=== PATIENT | female | born 1960 | race Caucasian/White ===

== ENCOUNTER → 2016-12-22 | Day surgery (SDC) | payer OTHER ==
[~2016-12-22] VITALS: Ht 162.6 cm; Wt 114.0 kg
[2016-12-22] VITALS (10 sets, daily range): BP systolic 108–143; BP diastolic 66–81; PULSE 81–89; RESP 10–17; O2SAT 93–99
[~2016-12-22] MED LIST: ALPR1TAB2 PO; Atropine 0.4 mg/mL Inj IVPUSH PRN; Bupivacaine Liposome 1.3% 20 mL Inj ONE; Bupivacaine-MPF 0.5% 30 mL Inj INFILTRATE ONE; Dexamethasone 4 mg/mL Inj ONE; EPHEDrine Sulfate 50 mg/mL Inj IVPUSH PRN; HYDR-656 PO; HYDROcodone-APAP 5-325 mg Tablet PO PRN; HYDROmorphone 1 mg/mL Inj IVPUSH PRN; Ketamine 10 mg/mL 20 mL Inj ONE; LEVO137C2 PO; LIOT25TA4 PO; Labetalol 5 mg/mL 20 mL Inj IV PRN; Lactated Ringer's 1,000 ML IV ONE; Lactated Ringer's 1,000 ML IV SCH; Lactated Ringer's 500 ML IV PRN; MELO-253 PO; MONT10TA23 PO; MetoCLOpramide 5 mg/mL 2 mL Inj IVPUSH PRN; Ondansetron 2 mg/mL 2 mL Inj IVPUSH PRN; Ondansetron 2 mg/mL 2 mL Inj ONE; Phenylephrine 10,000 mCg/mL Inj IVPUSH PRN; Propofol 10,000 mCg/mL 20 mL Inj ONE; VENL37.587 PO; fentaNYL-PF 50 mCg/mL 2 mL Inj IVPUSH PRN; fentaNYL-PF 50 mCg/mL 2 mL Inj ONE
--- NOTE | 2016-12-22 10:03 | PCM.HPANE ---
Patient Data Date of Service: Dec 22, 2016 Surgeon Admitting Provider: Attending Provider:Harriet Johnson MD Primary Care Physician:Mitch Lazcano MD Other Provider:Radha Zamora Anesthesia Reason for Visit External Hemorrhoids Ht/WT & BMI Height (Feet): 5 Height (Inches): 4.00 Weight (Kilograms): 114 Body Mass Index 42.00 Allergies Coded Allergies: No Known Allergies (Unverified Allergy, Unknown, 12/14/16) Past Anesthesia History Anesthesia History: Denies:: Anesthesia Reactions, Fam Anesthesia Reaction, Fam Malignant Hypertherm, Malignant Hyperthermia Diabetes History Hx Diabetes?: No MRSA MRSA: No Medications Home Meds Incl Beta Casey: No Reported Medications Alprazolam (Xanax)1 Mg Tablet1 Mg PO TID PRN For Anxiety Ref 0 12/14/16 Venlafaxine ER 37.5 Mg Tab.er.2437.5 Mg PO DAILY Ref 0 12/14/16 Levothyroxine (Tirosint)137 Mcg [id number] Mcg PO DAILY 12/14/16 Montelukast 10 Mg Sozntl38 Mg PO HS Ref 0 12/14/16 Meloxicam 15 Mg Exhzzn07 Mg PO DAILY 30 Days Ref 0 12/14/16 hydrOXYzine Hcl (HydrOXYzine Hcl)25 Mg Bxhwmi69 Mg PO TID PRN For Itching Ref 0 12/14/16 Liothyronine Sodium (Cytomel)25 Mcg Vjimlc49 Mcg PO DAILY 12/14/16 History History of ENT Problems?: No HEENT History: Denies:: Cataracts Dysphagia Hearing Problem Sinus Problem Denture Type: None Teeth Condition: Within Normal Limits Hx of Heart Problems?: No Cardiovascular History: Denies:: Cardiac Surgery Chest Pain Congestive Heart Failure Hypertension Pacemaker Hx of Respiratory Problem?: No Respiratory History: Denies:: Asthma COPD Oxygen Administration Tuberculosis Use of C-PAP Machine Hx Neurologic Problems?: No Neurological History: Denies:: Dizziness Headaches Multiple Sclerosis Parkinson's Disease Seizures Other History/Comments 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 (hx of breast reduction) Denies:: Currently (hysterectomy) Skin History: Denies:: History Skin Disorders? Hx Musculoskeletal Problems?: No Musculoskeletal History: Denies:: Joint Replacement Hx of Psycho/Social Problems?: No Psycho Social History: Denies:: Anxiety Bipolar Disorder Hx Depression Hx Surgeries?: Yes (BREAST REDUCTION, GASTRIC BYPASS, ANNEMARIE, BENIGN CYST SHOULDER, ) Hx Any Other Health Problems?: Yes Other History: Positive for:: Hospitalization Thyroid Disease (hx of thyroid ablation ) Denies:: Cancer History Blood Transfusions: Denies:: Blood Transfusions Hx Diabetes: No Hx Alcohol Use: YesAlcoholic Drinks Per Day: 6x yearlyHx Substance Use: No Have You Smoked inLast 12 mo: No Stop/Bang P-Blood Pressure: treated: No B- Body Mass Index > 35 kg/m2: Yes A- Age over 50: Yes N- Neck Large Circumference: No G- Gender Male: No Risk Assessment Category Category 1A: Patient has history of documented sleep apnea, and HAS NOT received any narcotic, sedative or anesthesia administration during this stay. Category 1B: Patient has history of documented sleep apnea, and HAS received any narcotic , sedative or anesthesia administration during this stay Category 2: Patient has SUSPECTED Obstructive Sleep Apnea, and HAS received any narcotic , sedative or anesthesia administration during this stay. Category 3: Patient has SUSPECTED Obstructive Sleep Apnea and HAS NOT received narcotic, sedative or anesthesia administration during this stay. Category 4: Outpatient in Procedural Areas with known sleep apnea or who screen positive for High Risk via the STOP/BANG questionnaire. Exam Exam Vital Signs Vital Signs Date Time Temp Pulse Resp B/P Pulse Ox O2 Delivery O2 Flow Rate FiO2 12/22/16 08:04 35.9 84 17 140/77 97 Room Air General Appearance: Alert, Oriented X3, Cooperative HEENT/AIRWAY: MP 2 Lungs: Clear to Auscultation Heart: Regular Rate/Rhythm, Normal S1, Normal S2, No Murmurs/Rubs/Gallops Meds/Labs/Diagnostics Admission Meds Current Medications Lactated Ringer's (Lr) 1,000 ml @ ud STK-MED ONCE IV Last administered on 12/22t 08:03; Start 12/22/16 at 08:03; Stop 12/22/16 at 08:04; Status DC Plan Impression Patient chart reviewed, patient interviewed and anesthestic plan with risks, benefits, and alternatives discussed, and informed consent obtained. ASA Physical Status: ASA3 Severe Disease Anesthetic Plan: GA Bene/Risks/Altern/Consents: Yes HP Complete Prior to Induction: Yes Tyler Veloz MD Dec 22, 2016 08:41
--- NOTE | 2016-12-22 11:02 | PCM.DISURG ---
Surgical Discharge Instruction Date of Service Dec 22, 2016 Dates of Hospitalization Date of Hospital Admission Providers Admitting Physician: Primary Care Physician: Mitch Lazcano MD Attending Physician: Harriet Johnson MD Diet Discharge Diet: No restrictions Activity Discharge Activity-General: Be up and about, Activity as pain allows, No driving while taking narcotic Dressing and Incisional Care Dressing Care: Keep dressing clean, dry & intact Hygiene: May shower, Other (Ok to take sitz baths) Additional Instructions Discharge Instructions Alternate between tylenol and ibuprofen around the clock for pain control Take oxycodone as needed for severe pain Take miralax to promote smooth and soft bowel movements Follow Up Plan Follow Up Plan In the general surgery clinic in the next 2-4 weeks. Call your provider for: Fever, Chills, Wound redness, Discharge @ incision, pus discharge Kareem Becerril MD Dec 22, 2016 11:02
--- NOTE | 2016-12-22 11:44 | PCM.ANEP1 ---
Post Anesthesia PACU Phase 1 Assessment Date of Service: Dec 22, 2016 Vital Signs Vital Signs Date Time Temp Pulse Resp B/P Pulse Ox O2 Delivery O2 Flow Rate FiO2 12/22/16 11:41 84 16 108/67 93 Room Air 12/22/16 11:30 36.4 89 15 136/77 96 Nasal Cannula 2 12/22/16 11:25 81 11 135/77 96 Nasal Cannula 2 12/22/16 11:20 36.4 85 12 140/79 96 Nasal Cannula 2 12/22/16 11:15 83 11 132/71 97 Nasal Cannula 2 12/22/16 11:10 86 10 131/78 97 Nasal Cannula 2 12/22/16 11:05 82 11 128/66 95 Nasal Cannula 2 12/22/16 11:00 88 11 143/81 94 Room Air 12/22/16 10:55 36.3 89 14 140/79 99 Simple Mask 8 12/22/16 08:04 35.9 84 17 140/77 97 Room Air Anesthetic Administered: GA Level of Alertness: Awake, talking Pain: No Nausea or Vomiting: No CV Function & Hydration Stable: Yes Airway Device: Lungs: Normal Air Movement PACU Phase 2 Assessment Patient Instructions Provided: N/A Tyler Veloz MD Dec 22, 2016 11:44
--- NOTE | 2016-12-22 11:50 | OP ---
[address] [address] OPERATIVE REPORT PATIENT: MIGUEL PANIAGUA : 1960 MR#: [id number] ADMIT: 12/22/2016 JOB ID: [id number] DATE OF SURGERY: 12/22/2016 PREOPERATIVE DIAGNOSIS(ES): External hemorrhoids, symptomatic. POSTOPERATIVE DIAGNOSIS(ES): Internal and external hemorrhoids, symptomatic. PROCEDURE PERFORMED: Excision of external and internal hemorrhoids at the left anterolateral to left posterolateral positions. This appeared to be two columns of hemorrhoids that were confluent with each other. SURGEON: Harriet Johnson M.D. ASSISTANTS: Romain Becerril M.D., R3; Maryanne Soriano, MS3. FINDINGS: 1. Digital rectal examination did not reveal any tumors or masses. 2. Enlarged confluent columns of internal and external hemorrhoids at the left anterolateral and left posterolateral positions, which were excised. 3. Enlarged internal hemorrhoids at the right anterolateral position, which were small in comparison and were left intact. HISTORY OF PRESENT ILLNESS: This is a 56-year-old woman with a history of symptomatic hemorrhoids refractory to conservative management. Colonoscopy at the age of 51 had been normal. She desired excision due to issues with pain, bleeding, and sanitation. DESCRIPTION OF PROCEDURE: The patient was brought to the operating room and placed in the supine position. General anesthesia was induced. A warming blanket was placed. The patient was repositioned into high lithotomy. The operative field was prepped and draped in a sterile fashion. A pause was performed to confirm the correct patient, procedure and site. A digital rectal examination was performed. It did not reveal any tumors or masses. Perianal examination revealed large left lateral external hemorrhoids which were confluent with internal hemorrhoids and extended from the left anterolateral through the left posterolateral positions, from approximately 1:00 to 5:00 with 12 o'clock being anterior. The confluence of these hemorrhoids was large and was excised with the LigaSure device with care taken to preserve the sphincter complex. A 2-0 chromic stitch was then used to run along the line of excision to secure it, given that the size of the complexive hemorrhoid had been large. Antibiotic ointment was placed. Marcaine was injected, both at the site of excision and circumferentially. 20 mL of liposomal bupivacaine was also injected into the surgical site and circumferentially for postoperative analgesia. A pad was placed and the patient was awakened from general anesthesia and taken to the postoperative care unit in good condition. SPECIMENS: Hemorrhoids. COMPLICATIONS: None. ESTIMATED BLOOD LOSS: 5 mL.
--- NOTE | 2016-12-26 16:33 | PATH ---
SURGICAL PATHOLOGY Attending Physician:Harriet Johnson MD CASE STATUS: Signed Out PATIENT NAME: MIGUEL PANIAGUA PID: [id number] : 1960 DATE COLLECTED:12/22/2016 20:46 SPECIMEN: Hemorrhoids CLINICAL HISTORY: EXTERNAL HEMORROIDS 1). LEFT LATERAL EXTERNAL HEMORROIDS FINAL DIAGNOSIS: Left Lateral External Hemorrhoids, Excision: Hemorrhoids. ICD10: K64.9 GROSS DESCRIPTION: The specimen is received in formalin, labeled with the patient's name, sublabeled as left lateral external hemorrhoids, and consists of and an oriented piece of the ray and focally black bulging glistening skin (5.2 x 1.2 x 1.0 cm). Ink code: black-resection margin. Section code: (A) skin, serially sectioned, registered representative. 12/23/16 ICD-9 CODES: CPT CODES: 1: 50588 Electronically Signed Out Alexi Araujo MD, Ph.D. [facility] [address], [place] [address] Technical component performed at [facility], [facility] [address], [place], [address]
== END | disposition home or self-care (01) ==
LOC: SAS 07:40
PROVIDERS: ATTEND Surgery
DX: K64.4 Residual hemorrhoidal skin tags (principal); K64.8 Other hemorrhoids; E03.9 Hypothyroidism, unspecified; E66.9 Obesity, unspecified; Z68.41 Body mass index [BMI] 40.0-44.9, adult
CPT/HCPCS: 46250; J1100; J2250; J2405; J2704; J3010; J7120